=== PATIENT | male | born 1945 | race Two or more races ===

== ENCOUNTER 2023-08-26 09:42 | Emergency (ER) | payer MEDICARE, MEDICAID ==
[~2023-08-26] VITALS: Ht 177.8 cm; Wt 77.0 kg
[2023-08-26 11:49] VITALS: BP 155/89; PULSE 88; RESP 17; TEMP 97.7; O2SAT 95
== END 2023-08-26 11:51 | disposition home or self-care (01) ==
LOC: ER 09:43
DX: R60.0 Localized edema (principal); I10 Essential (primary) hypertension; Z91.013 Allergy to seafood; Z88.8 Allergy status to other drugs, medicaments and biological substances; Z90.49 Acquired absence of other specified parts of digestive tract
CPT/HCPCS: 99281

== ENCOUNTER 2023-09-13 11:15 | Emergency (ER) | payer MEDICARE, MEDICAID ==
[~2023-09-13] VITALS: Ht 170.2 cm; Wt 83.8 kg
[2023-09-13 12:37] VITALS: BP 115/70; PULSE 96; RESP 17; TEMP 98.3; O2SAT 97
== END 2023-09-13 12:42 | disposition home or self-care (01) ==
LOC: ER 11:15
DX: K43.9 Ventral hernia without obstruction or gangrene (principal); I10 Essential (primary) hypertension; Z88.8 Allergy status to other drugs, medicaments and biological substances; Z91.013 Allergy to seafood; Z90.49 Acquired absence of other specified parts of digestive tract
CPT/HCPCS: 99281